=== PATIENT | female | born 1960 | race Asian ===

== ENCOUNTER 2017-06-04 08:41 | Outpatient (CLI) | payer MEDICARE, MEDICAID ==
--- NOTE | 2017-06-04 09:59 | Diagnostic Imaging Report ---
Pelvic ultrasound HISTORY: Mass. The exam is limited to transabdominal sonographic technique. The patient declined endovaginal sonographic evaluation. The study is quite limited due to lack of patient cooperation. The uterus is not visualized. Finding should be correlated with patient history. The ovaries cannot be seen. No abnormal masses or abnormal fluid collections. IMPRESSION: 1. Very limited exam due to the factors noted above 2. The uterus and ovaries are not identified. The findings should be correlated with patient's surgical history. No abnormal masses or fluid collections identified.
== END 2017-06-04 09:20 | disposition home or self-care (01) ==
LOC: RAD 08:41
PROVIDERS: ATTEND Internal Medicine
DX: R19.00 Intra-abdominal and pelvic swelling, mass and lump, unspecified site (principal)
CPT/HCPCS: 76856-TC

== ENCOUNTER 2018-11-12 16:08 | Emergency (ER) | payer MEDICARE, MEDICAID ==
[2018-11-12] MEDS ORDERED: Haloperidol Lactate 5 mg/mL 1mL Vial IM STA (17:50)
--- NOTE | 2018-11-13 11:24 | ER Physician Documentation ---
DATE OF SERVICE: 11/12/2018 HISTORY OF PRESENT ILLNESS: This patient presents to the Emergency Room with an accidental fall resulting in a head injury. This patient apparently lives in a [facility]. She presented to the Emergency Room after an accidental fall, hitting her head. Some bruises were noted on the head. The patient was brought in for further evaluation by the staff. The patient was alert and active throughout the whole Emergency Room visit and there was no evidence of loss of consciousness, altered level of conscious, altered mental status. No nausea, vomiting, decreased activity, visual or gait changes. No weakness, dizziness, vertigo, paresthesias or gait changes. No report of headaches, chest pain, neck pain, shortness of breath, abdominal pain, nausea, vomiting or diarrhea or constipation. The patient is eating and urinating well. The patient last urinated about an hour prior to admission. PAST MEDICAL HISTORY: As per nurse's notes. MEDICATIONS: Per nurse's notes. FAMILY HISTORY: Per nurses' notes. ALLERGIES: Per nurse's notes. REVIEW OF SYSTEMS: Otherwise, noncontributory. The patient's last tetanus shot is up to date, is less than 5 years. PHYSICAL EXAMINATION: GENERAL: Found the patient to be in no acute distress, alert and active with her usual mental status. She is alert and oriented x 3. VITAL SIGNS: Afebrile. Vital signs are stable. HEENT: Head examination revealed frontal scalp contusions. There are no abrasions. Pupils equal, round, reactive to light. Fundi benign. Extraocular muscles seemed to be within normal limits. No otorrhea, rhinorrhea, or loose teeth. Negative Newman sign. There was no epistaxis. No bleeding in any of the orifices. Pharynx is within normal limits. NECK: Supple. No cervical tenderness. No meningeal signs. No bruits. CARDIOVASCULAR: Regular rate and rhythm. LUNGS: Clear with good breath sounds bilaterally. No evidence of chest trauma. ABDOMEN: No evidence of abdominal trauma. Soft, nontender, normal active bowel sounds, no pulsatile masses. EXTREMITIES: No edema, clubbing or cyanosis. NEUROLOGIC: Showed no focal signs. MEDICAL DECISION MAKING: The patient refused x-rays which would have included CAT scan of the head, C-spine and face. The patient refused x-rays and thus was discharged. The patient was asymptomatic upon discharge and the patient was discharged with aftercare instructions given for all the above diagnoses. The patient is to return to the Emergency Room as needed if existing signs and symptoms should recur and/or get worse and/or any other new signs or symptoms should occur. Refer to a neurosurgeon as soon as possible, refer to aviation safety officer as soon as possible. Followup care with primary physician in one day or as needed. The patient is to return to Emergency Room as needed if concerned. Aftercare instructions given. DIAGNOSES: Scalp contusions, head injury. [facility]# [id number]
== END 2018-11-12 18:56 | disposition home or self-care (01) ==
LOC: ER 16:08
DX: S00.03XA Contusion of scalp, initial encounter (principal); W18.39XA Other fall on same level, initial encounter; Y93.89 Activity, other specified; Y92.89 Other specified places as the place of occurrence of the external cause; Y99.8 Other external cause status
CPT/HCPCS: 99283; 96372 ×3; J2060; J1200; J1630; Z7502